=== PATIENT | female | born 1995 | race Caucasian/White ===

== ENCOUNTER 2022-11-14 05:00 | Inpatient (IN) | payer MEDICAID, SELFPAY ==
[2022-11-14] VITALS (21 sets, daily range): BP systolic 112–136; BP diastolic 64–82; PULSE 70–88; RESP 11–22; TEMP 36.3–36.8; O2SAT 95–99; BMI 29.6
[2022-11-14] MEDS: Lactated Ringers 1,000 ML 999 ML IV (05:25)
[2022-11-14] MEDS: Acetaminophen 500 MG Tablet 1000 MG PO ×4 (05:37→23:38)
[2022-11-14 05:44] LABS: Absolute Lymphocyte Count 2.62 X10^3/uL (0.83-4.51); Absolute Neutrophil Count 5.4 X10^3/uL (2.0-7.7); Basophil# 0.06 X10^3/uL; Basophil% 0.6 % (0-1); Eosinophil# 0.06 X10^3/uL; Eosinophils% 0.6 % (0-5); Hematocrit 35.6 % (37-47); Hemoglobin 11.9 g/dL (12.0-15.0); Lymphocyte # 2.62 X10^3/ul (0.83-4.51); Lymphocyte % 28.3 % (19-41); Mean Corp Hgb Conc 33.4 g/dL (32-36); Mean Corpuscular Hgb 29.9 pg (27.0-32.0); Mean Corpuscular Volume 89.4 fL (81-99); Mean Platelet Vol. 12.5 fl (6.2-12.0); Monocyte# 1.08 X10^3/uL; Monocyte% 11.7 % (0-10); NRBC Flagged by Analyzer 0 % (0-5); Neutrophil # 5.37 X10^3/uL (2.7-7.7); Neutrophil % 58.2 % (47-70); Platelet Count 209 K/mm3 (150-450); RBC Distribution Width CV 13.2 % (11.6-14.6); RBC Distribution Width SD 43.4 fl (35.1-43.9); Red Blood Count 3.98 M/mm3 (4.2-5.4); White Blood Count 9.3 K/mm3 (4.4-11.0)
[2022-11-14] MEDS: Lactated Ringers 1,000 ML 150 ML IV (06:34)
[2022-11-14] MEDS: Sodium Citrate/Citric Acid 30 ML UDC PO (07:05)
--- NOTE | 2022-11-14 07:12 | PCM.HP.BLA ---
History and Physical Date of Admission: 11/14/22 PROBLEM: 39 week gestation, single IUP, history section, request for sterilization ? ? PAST SURGICAL HISTORY: PAST SURGICAL HISTORYExpand by Default PAST SURGICAL HISTORY Procedure Laterality Date ? SECTION HX ? PAST MEDICAL HISTORY: PAST MEDICAL HISTORYExpand by Default PAST MEDICAL HISTORY Diagnosis Date ? anxiety ? ? Placental abruption ? ? Preeclampsia ? ? ? SUBJECTIVE: Doing well and offers no complaints ? SOCIAL HISTORY: SOCIAL HISTORYExpand by Default Social History ? Tobacco Use ? Smoking status: Never ? Smokeless tobacco: Never Vaping Use ? Vaping Use: Former ? Quit date: 03/20/2022 ? Substances: Nicotine Substance Use Topics ? Alcohol use: Not Currently ? ? Comment: SOCIALLY ? Drug use: Never ? ? ALLERGIESExpand by Default ALLERGIES No Known Allergies ? Current Outpatient Medications on File Prior to Visit Medication Sig ? aspirin, enteric coated (ASPIRIN, ENTERIC COATED) 81 mg EC tablet Take 2 tablets by mouth once daily. ? vit no.124/iron/folic ( VITAMIN ORAL) Take 1 tablet by mouth once daily. ? loratadine (CLARITIN) 10 mg tablet ? ? No current facility-administered medications on file prior to visit. ? ? ? OBJECTIVE: ? VITALS: BP 120/72 Wt 159 lb 12.8 oz (72.5 kg) LMP 02/12/2022 (Approximate) BMI 28.31 kg/m? ? HEENT: Normocephalic, atraumatic, Mucus membranes moist without lesions. ? SKIN: No lesions. ? CHEST: Clear to auscultation. No wheezes or rales. Good air exchange. ? HEART: Regular rate and rhythm No S3 or S4. No gallops or rubs. ? BACK: Nontender with no CVA tenderness. ? ABDOMEN: Soft, gravid. ? LOWER EXTREMITIES: There was no pitting edema, no palpable cords and no skin changes. ? ? ? ASSESSMENT: repeat section with tubal sterilization ? PLAN: 1) Discussed repeat section with bilateral salpingectomy. The rationale for the proposed surgery was discussed in addition to risks, benefits, and alternatives. General pre- and post-operative care was reviewed. Questions were answered. After discussion, the patient indicated a desire to proceed with the planned surgery. ? Maddie Adams, DO Assessment & Plan Assessment/Plan (1) 39 weeks gestation of : PLAN: Admit for routine pre op care. Scheduled repeat C/S with sterilization. (2) Request for sterilization: (3) History of anxiety: (4) History of pre-eclampsia:
[2022-11-14] MEDS: Cefazolin 2 GM in 0.9% Normal Saline 100 ML IV (07:17)
--- NOTE | 2022-11-14 07:50 | FALS_PTH ---
PATIENT: WILLIS VELÁZQUEZ LOC: [facility] U#:[id number] AGE/SX: 27/F ROOM: [facility] RE11/14/[address]: Dr. Maddie Adams DO : 1995 BED: 1 DIS: 11/15/2022 SPEC #: [id number] RECD: 11/14/22 09:45 STATUS: DESMOND RESoy #: [id number] MELISSA: 11/14/22 07:[address]: Maddie Adams DEPT: SURGICAL PATHOLOGY RECD BY: Sherrell Sosa ENTERED: 11/14/22 11:06 SP TYPE: FALL TUBES OTHR DR: No Primary Care Phys Tissues: Fallopian tube Procedures: Surgery Specimen Level II HEADER OPERATION: Repeat section PRE-OP DIAGNOSIS: Sterilization TISSUE SUBMITTED: Fallopian tubes, suture in right tube MICROSCOPIC DIAGNOSIS Bilateral fallopian tubes, salpingectomy: Bilateral fallopian tubes, no pathologic diagnosis. JOSE:fletcher 11/15/2022 MICROSCOPIC DESCRIPTION Slides are reviewed. GROSS DESCRIPTION Received in fixative is one container labeled with the patient's name and designated bilateral fallopian tubes, suture right tube. The specimen consists of bilateral fallopian tubes including fimbrial ends. The right fallopian tube, identified by a suture, measures 9.0 cm in length and up to 0.9 cm in diameter and the left fallopian tube measures 8.5 cm in length and 0.8 cm in diameter. Sections reveal unremarkable cut surfaces. Ice Guard Inspector sections are submitted in two cassettes as follows: 1 - right fallopian tube, 2 - left fallopian tube. / SJ:rg 11/14/2022 TC:4 CPT: 69675 x2
[2022-11-14 08:44] LABS: Syphilis Antibodies Non-reactive
--- NOTE | 2022-11-14 08:49 | OP.PCM_ITS ---
Problems Associated Problem List Diagnoses (1) 39 weeks gestation of : (2) Request for sterilization: Report of Operation Date of Procedure: 11/14/22 Pre-Operative Diagnosis: 39 week gestation, single IUP, history section, request for sterilization Post-Operative Diagnosis: As above Surgery/Procedure Performed:: RLTCS via pfannenstiel incision Description of Surgical Findings:: VMI in cephalic presentation. Weight 3045 g. Apgars 8, 9. Clear fluid. Normal appearing placenta with 3 VC. Normal appearing uterus and bilateral adnexa. Bladder adhered to the uterus. Thin filmy adhesions of the peritoneum to the anterior uterus. Surgeon: Maddie Adams business development engineer: William SUH Type of Anesthesia: Spinal Special Medications: None Specimen's removed: Placenta Drains: Tamez Estimated Blood Loss (mL): 800 Fluids Replaced: 1500 mL Description of Procedure: The patient was taken to the operating room where spinal anesthesia was found to be adequate. She was prepped and draped in the dorsal supine position with a leftward tilt. A Pfannenstiel skin incision was made with a scalpel and this was carried down to the underlying layer of fascia. The fascia was incised in the midline. The fascia was extended laterally using Ruiz scissors. The fascia was minimally dissected off the rectus muscles in a cephalad direction. The fas aylene was adhered to the rectus. The rectus muscles were in the midline. The peritoneum was entered sharply with good visualization of the bladder. The peritoneal incision was extended bluntly with lateral traction. A bladder blade was inserted. A bladder flap was created using sharp dissection to bring the bladder down. Several thin filmy adhesions of the peritoneum to the anterior uterus were transected using Metzenbaum scissors. A low transverse incision was made on the uterus with a scalpel. Membranes were ruptured for clear fluid. The head of the infant was elevated and flexed and delivered through the incision, followed by the shoulders and body without any traction, force, or delay. The cord was clamped and cut after a slight delay. A vigorous viable male was handed to the nursery staff. The placenta was removed with manual extraction. The uterus was exteriorized. The uterus was cleared of all clot debris. The hysterotomy was closed with 1-0 Vicryl in a running locked fashion. Several additional [id number] sutures were placed. Confirmed that the patient wanted sterilization. The right fallopian tube was followed out to the fimbriated end using [place] clamps. Using LigaSure device the mesosalpinx was serially clamped, cauterized, and transected hugging adjacent to the fallopian tube until reaching level of the cornua. Once at the level of the cornua the fallopian tube was transected. The same was performed on the left to remove the left fallopian tube. Bilateral fallopian tubes were sent to pathology for review. Hemostasis was noted. The uterus was placed back into the abdomen. The adnexa were noted to be hemostatic again. Rabia was placed over the hysterotomy and lower uterine segment where hemostasis was again noted. The peritoneum was closed with 3-0 Vicryl in a running fashion. The subfascial space was noted to be hemostatic. The fascia was closed with strata fix in a running fashion. The subcutaneous space was irrigated and made hemostatic with Bovie cautery. Subcutaneous space was reapproximated using 3-0 Vicryl. The skin was closed with 4-0 Monocryl in a subcuticular fashion. A dressing was placed. Instrument, sponge, needle counts were correct. The patient was taken to the recovery in stable condition. William SUH assisted with the entire procedure from draping the patient, delivery of the , closure. Grafts/Implants Used: None Procedure Start Time: 07:40 Procedure Stop Time: 08:45 Complications None Admit VTE Documentation VTE Present on Admission: No VTE Mechan Device Prophylaxis: SCD's
[2022-11-14] MEDS: Oxytocin 15 Units/NS 250ml 15 UNITS/250 ML IV.SOLN 83 UNITS IV (09:10)
[2022-11-14 09:45] LABS: Pathology Specimen OB SEE PATHOLOGY REPORT
[2022-11-14] MEDS: Ketorolac 30 MG/ML Syringe IV ×3 (09:53→22:37)
[2022-11-14] MEDS: Senna/Docusate Sodium 1 Tablet PO (10:22)
[2022-11-14] MEDS: Lactated Ringers 1,000 ML 100 ML IV (12:45)
[2022-11-14] MEDS: 0.9% Saline Lock 10 ML Syringe IV ×2 (15:50→22:37)
[2022-11-15 01:22] VITALS: RESP 18
[2022-11-15 04:05] VITALS: BP 108/66; PULSE 78; RESP 18
[2022-11-15] MEDS: Ketorolac 30 MG/ML Syringe IV (04:06)
[2022-11-15 05:02] LABS: Hemoglobin 9.6 g/dL (12.0-15.0); Mean Corp Hgb Conc 33.1 g/dL (32-36); Mean Corpuscular Volume 90.6 fL (81-99); Mean Platelet Vol. 11.9 fl (6.2-12.0); Platelet Count 187 K/mm3 (150-450); RBC Distribution Width CV 13.3 % (11.6-14.6); RBC Distribution Width SD 43.8 fl (35.1-43.9); White Blood Count 10.9 K/mm3 (4.4-11.0)
[2022-11-15] MEDS: Acetaminophen 500 MG Tablet 1000 MG PO ×2 (05:02→11:28)
[2022-11-15 08:00] VITALS: BP 136/87; PULSE 84; RESP 16; TEMP 36.9; O2SAT 96
--- NOTE | 2022-11-15 08:39 | PCM.PN.OB ---
Subjective Subjective Denies complaints Objective Data Objective Data Vital Signs: Vital Signs Temp Pulse Resp BP Pulse Ox O2 Del Method 97.8 F 78 18 108/66 96 Room Air 11/14/22 23:20 11/15/22 04:05 11/15/22 04:05 11/15/22 04:05 11/14/22 23:20 11/15/22 04:05 Oxygen Delivery Method Room Air Weight: 162 lb Body Mass Index (BMI) 29.6 Intake & Output: Intake and Output for Last 24 Hours 11/13/22 11/14/22 11/15/22 23:59 23:59 23:59 Intake Total 3068.33 / 3068.33 Output Total 3210 / 3210 1125 / 1125 Balance -141.67 / -141.67 -1125 / -1125 Lab / Micro Data 11/15/22 04:50 Labs: Laboratory Results - last 24 hr 11/14/22 05:25: Syphilis Total Ab Non-reactive, Blood Type A NEGATIVE, Antibody Screen NEGATIVE 11/15/22 04:50: WBC 10.9, RBC 3.20 L, Hgb 9.6 L, Hct 29.0 L, MCV 90.6, MCH 30.0, MCHC 33.1, RDW Std Deviation 43.8, RDW Coeff of Thai 13.3, Plt Count 187, MPV 11.9 Physical Exam Const alert, oriented x3 and no apparent distress HEENT normocephalic GI soft to palpation, non-tender and non-distended GI Narrative: fundus firm, mid & below umbilicus Incision - bandage c/d/i Extremity normal to inspection and no calf tenderness Assessment & Plan (1) Request for sterilization: COMMENT: POD#1 (2) Delivery by section: PLAN: Plan Heme - HDS, CBC reviewed ID - no signs infection GI/ - no issues D/c home per patient request
--- NOTE | 2022-11-15 08:41 | DCINST_ITS ---
Discharge Instructions Diet Discharge Diet: No restrictions Activity Discharge Activity: May Shower May resume sexual activity in: 6 weeks Weight Bearing Status: Weight bearing as tolerated Dressing / Incision Call your doctor if your incision/area has: Continuous Slow Oozing, Sudden Increased Bleeding, Increased Pain/ Swelling, Increased Redness, Foul Smelling Discharge and Swelling at the incision site Call your doctor if you observe: Fever of 101 or Higher, Coldness, Increased Pain, Change in Color, Inability to urinate, Inability to have a bowel movement, Using more than 1 pad per hour, Shortness of breath, Dizziness, Fainting spells, Chest pain, Increased palpitations (irregular heartbeat), Calf discomfort and Uncontrolled pain Suture Line Care: Avoid Pulling/Pushing and Avoid Pinching/Bending Remove Dressing in: 1 week Cleanse incision/area with: Soap & Water Follow Up Care Please Follow Up With: Maddie Adams DO When: Follow up in 2 and 6 weeks for visits. Test Results: Test results from this visit will be discussed in further detail at your follow- up appointment, if applicable. Discharge Plan Admission Admit Date/Time: 11/14/22 05:00 Primary Reason for Your Visit: section Attending Provider: Maddie Adams Primary Care Provider: Care PhysicianSharon Primary Discharge Orders/Prescriptions Prescriptions: New acetaminophen 500 mg Tablet 1,000 mg PO Q6H Qty: 0 0RF ibuprofen 600 mg Tablet 600 mg PO Q6H Qty: 0 0RF ferrous sulfate 325 mg (65 mg iron) tablet 325 mg PO DAILY Qty: 30 2RF Continued PNV cmb#95-ferrous fumarate-FA [] 28 mg iron- 800 mcg tablet 1 tab PO DAILY Discontinued aspirin [Adult Aspirin Regimen] 81 mg tablet,delayed release (DR/EC) 81 mg PO DAILY Referrals / Follow Up: Care PhysicianSharon Primary [Primary Care Provider] - Disposition Disposition (needs filled in before D/C Order can be placed): Home, Self Care
[2022-11-15] MEDS: Senna/Docusate Sodium 1 Tablet PO (09:50)
[2022-11-15] MEDS: Ibuprofen 600 MG Tablet PO ×2 (09:50→15:52)
--- NOTE | 2022-11-15 14:28 | CASEMGMT ---
Social Work Assessment Labor and Delivery Unit Patient Address:[address] [place] [address] [place] [address] Phone number: [phone] Date of Referral: 11/14/22 Time of Referral:? 638 Referred By: Dr. Katie Kennedy Date of Intervention: ??11/15/22 Time of Intervention:? 3363 Reason for Referral:? Anxiety Sw completed chart review and acknowledges social work consult entered due to anxiety'. Sw presented to bedside and introduced self to parents, mother of baby (MOB- Sabi) and father of baby (FOB- Andres). Sw explained sw role during hospitalization and reason for sw involvement. Parents were receptive to meeting with sw. Sw completed psychosocial assessment. Sw asked FOB to step out briefly while MOB completed [place] Depression Scale, to which FOB did so respectfully and without question. History obtained from: medical records, MOB and FOB. Household composition: Currently residing in the family home is MOB, RAY and SIMEON's older daughter (Jo, 7 years old). Patient's parent/guardian status:?SIMEON is 25 year old, single, female who states that she met FOB through mutual friends and they have been together for 2 years. FOB states that baby is his first baby. FOB was present for delivery and has been active in hands on care since baby has been born. Medical History: SIMEON is 2, para 1- now 2. SIMEON received routine care throughout with [facility]. SIMEON was scheduled repeat . Baby boy, named Sebastian Kellogg, was born on 11/14/22 weighing 6lb 11oz and his apgars were 8 and 9 at one and five minutes of life respectfully. SIMEON is formula feeding and states that has been going well.? Educational Status:Both parents are high school graduates and deny college education. Parents state they did not have any difficulties with learning/ reading. Financial Status: SIMEON is currently unemployed. 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 FOB states that he has used vacation time in order to be off now that baby has been born. Infant Supplies:??MOB states that they have obtained all necessary baby items including: car seat, safe sleep space (they have bassinet, pack n play and crib), clothes, diapers and wipes. FOB states that the only thing they have not gotten yet is the formula. MOB states that she did not want to buy anything ahead of time until she knew what the baby would be given at the hospital. Childcare/Caregiver(s):? SIMEON states that she will be the primary caregiver to baby since she is a stay at home mom. RAY will also be a primary caregiver to baby outside of his regular working hours. Transportation:??Both parents report they have their drivers license and reliable means of transportation. No transportation barriers at this time. Programs/Agencies Involved: SIMEON is connected to insurance through [employer] ([employer]). Sw encouraged MOB to get connected to [employer], as she will be eligible due to being on [employer]. MOB stated that she had planned to look into it once baby was born. Sw explained that [facility] will help parents obtain formula for baby. Parents expressed understanding. ??? Children Services/Legal Issues:?NO former involvement with Children's Services. No issues or concerns warranting referral at this time. ?? Behavioral Health Issues: ??Mental Health History:??FOB states that he has a history of being diagnosed with anxiety and depression. FOB states that he was previously on medication (does not remember name) and involved in counseling. FOB states that these issues resolved themselves about 5 years ago and he has not had any issues or concerns with his mental health. MOB states that she has been diagnosed with anxiety, denies depression. Sw educated parents on signs and symptoms of baby blues and depression. FOB stated that he does not know what to expect, and does not know how to support MOB should she struggle with baby blues or depression. Sw encouraged parents to have a conversation about this so that if MOB were to struggle FOHelen feels prepared on how to help. MOB completed [place] Depression Scale, her score was a 7. Sw encouraged MOB to get connected to community mental health supports, or utilize natural supports that she mentioned in her family. Substance Use History:?MOB denies substance use prior to and during . ? Family History: MOB denies and family history of substance use and mental health on?either side of the family. ?? Drug Screens: ?No urine screens observed in chart review Family/Social Stressors:? Parents deny stressors at this time. Support Systems: MOB states that their parents and grandparents are their biggest supports. Depression/Shaken Baby/Safe Sleeping:?Sw educated parents on signs and symptoms of baby blues and depression/ anxiety. Sw informed parents that they could be more susceptible to experiencing symptoms due to their positive mental health history of anxiety/ depression (FOB). Parents expressed understanding.Sw also educated parents on shaken baby prevention and ABCs of safe sleep. Parents expressed understanding. ASSESSMENT:? Parents were engaged during assessment. Parents were very calm and answered questions asked. MOB was observed providing gentle hands on care to baby. Parents have adequate supports, and are connected to some beneficial community resources. MOB receptive to getting connected to [facility] to help with cost of formula for baby. Parents were open and receptive to sw involvement and support. Parents educated at length regarding baby blues and depression due to their mental health history. PLAN:? MOB and baby to be discharged when medically ready. ?No other services requested or indicated. Connie Hutton, MANAGER CLINICAL PHARMACY, ABRASIVE GRADER
[2022-11-15 14:40] VITALS: BP 131/86; PULSE 84; RESP 16; TEMP 36.9; O2SAT 96
== END 2022-11-15 16:20 | disposition home or self-care (01) | DRG 539 ==
PROVIDERS: Admitting Provider Obstetrics & Gynecology; Visit Provider Obstetrics & Gynecology
PROC: 10D00Z1 Extraction of Products of Conception, Low, Open Approach (ICD-10-PCS; CPT 59514; principal; 2022-11-14 07:15)
DX: O34.211 Maternal care for low transverse scar from previous cesarean delivery (principal); Z30.2 Encounter for sterilization; Z37.0 Single live birth; Z79.82 Long term (current) use of aspirin; Z3A.39 39 weeks gestation of pregnancy; Z86.59 Personal history of other mental and behavioral disorders
CPT/HCPCS: 59025; 85025; 85027; 86780; 86850; 86900; 86901; 88302; 99221; J7120; A4216; G0378; J2405